=== PATIENT | female | born 1965 | race African-American/Black ===

== ENCOUNTER → 2016-12-14 | Outpatient (CLI) | payer OTHER ==
[2016-01-08 13:30] VITALS: BP 130/78
[~2016-12-14] MED LIST: CARV6.252 PO; LISI1TAB3 PO; OMEP20TA63 PO; RANI150C PO
--- NOTE | 2016-12-14 16:05 | KCIC ---
PA and lateral chest radiograph. History: Left-sided chest pain for one year. Comparison: June 16, 2004. Findings: Cardiomediastinal silhouette is within normal limits for size. Bilateral lung diaz appear clear without evidence of infiltrate, effusion, or pneumothorax. Impression: 1. No acute cardiopulmonary process. Electronically signed by: Amaury Charles MD (12/14/2016 4:01 PM) [place] [id number]
== END | disposition home or self-care (01) ==
LOC: KCIC 15:21
PROVIDERS: ATTEND Family Medicine
DX: R07.89 Other chest pain (principal)
CPT/HCPCS: 71020

== ENCOUNTER → 2017-06-09 | Outpatient (CLI) | payer OTHER | END | disposition home or self-care (01) | LOC: KCIC MAMMO 13:44 | DX: Z12.31 Encounter for screening mammogram for malignant neoplasm of breast (principal) | CPT/HCPCS: 77063; 77067 ==

== ENCOUNTER → 2018-03-06 | Outpatient (CLI) | payer OTHER ==
[2016-01-08 13:30] VITALS: BP 130/78
[~2018-03-06] MED LIST changes: +CARV6.2511 PO; -CARV6.252 PO
--- NOTE | 2018-03-06 15:07 | KCIC ---
Renal ultrasound 03/06/2018 INDICATION: Left flank pain COMPARISON STUDY: None FINDINGS: Ultrasound evaluation of the kidneys was performed. Static images are submitted to PACS. Right kidney is normal in appearance measuring 11.6 cm in length. Left kidney is partially obscured but appears to be grossly normal in size measuring approximately 12 cm in length. No evidence of hydronephrosis or nephrolithiasis is seen involving either kidney. The bladder is partially decompressed but otherwise grossly unremarkable. IMPRESSION: Somewhat for visualization of the left kidney. No gross sonographic renal abnormalities are identified. Electronically signed by: Fernandez Knox MD (03/06/2018 3:04 PM) [id number]
== END | disposition home or self-care (01) ==
LOC: KCIC US 08:43
PROVIDERS: ATTEND Family Medicine
DX: R10.84 Generalized abdominal pain (principal)
CPT/HCPCS: 76770

== ENCOUNTER → 2018-08-08 | Outpatient (CLI) | payer OTHER ==
[2016-01-08 13:30] VITALS: BP 130/78
[~2018-08-08] MED LIST changes: +CONTRAST GIVEN. MC PRN; +GADOBUTROL 7.5 MMOL/7.5 ML VIAL IV ONE; +IOHEXOL 240 MG/ML 50ML VIAL. PO ONE; +IOHEXOL 300 MG/ML 100ML VIAL. IV ONE
--- NOTE | 2018-08-08 15:47 | RAD ---
Examination: CT ABD PELV W/ORAL IV CONTRAST History: LUQ ABD PAIN
IV OMNI [id number] MLS AND PO OMNI 240 50 MLS
Comparison/Correlation: None Findings: Axial images of the abdomen and pelvis were obtained following IV and oral contrast. Sagittal and coronal reformatted images provided. Visualized lung bases are clear. Liver, spleen, pancreas, adrenal glands, and kidneys are normal. No enlarged abdominal or pelvic lymph nodes. Gallbladder fossa is unremarkable. Abdominal aortic diameter is unremarkable. No ascites or pelvic free fluid. Bicornuate uterus is noted. Appendix is normal. No bowel obstruction. No extraluminal gas. Mild L4-5 disc space narrowing is present. Impression: No mass or suspicious process. PQRS Compliance Statement: One or more of the following individualized dose reduction techniques were utilized for this examination: 1. Automated exposure control 2. Adjustment of the mA and/or kV according to patient size 3. Use of iterative reconstruction technique Electronically signed by: Eduardo Barrios MD (08/08/2018 3:44 PM) [facility]
--- NOTE | 2018-08-08 16:43 | RAD ---
MRI of the Brain without and with Contrast 08/08/2018 Clinical History: Small bump on the left side of skull. Technique: Unenhanced T1-weighted sagittal, coronal and axial and FLAIR, T2-weighted, gradient echo and diffusion-weighted axial images of the brain were obtained. After the intravenous administration of 7.5 cc of Gadavist, enhanced T1-weighted axial, sagittal and coronal images of the brain were obtained. Findings: No previous studies are available for comparison. A MRI compatible marker was placed in the left scalp immediately anterior to the patient feels a palpable abnormality. The ventricles and sulci are within normal limits in size and configuration. Patchy and a few small scattered areas of abnormally increased signal intensity are seen within the periventricular and subcortical white matter of both cerebral hemispheres on the FLAIR and T2-weighted images consistent with areas of minimal small vessel ischemic disease. No acute parenchymal abnormality is seen. No abnormal area of contrast enhancement is noted. No extra-axial fluid collection is seen. There is no MRI evidence of acute ischemia/infarction. Mild mucosal thickening in seen scattered throughout the paranasal sinuses. There are small bilateral mastoid effusions. Normal flow voids are seen within the major vascular structures surrounding the brain parenchyma. No definite soft tissue mass is seen in the left parietal scalp in the area where the patient feels a palpable abnormality. Slightly prominent subcutaneous fat is seen in this region. Conceivably this could represent a small lipoma. Clinical correlation is recommended. Impression: 1. No acute parenchymal abnormality is seen. 2.No definite soft tissue mass is seen in the left parietal scalp in the area where the patient feels a palpable abnormality. Slightly prominent subcutaneous fat is seen in this region. Conceivably this could represent a small lipoma. Clinical correlation is recommended. Electronically signed by: Duc Crenshaw MD (08/08/2018 4:40 PM) [id number]
== END | disposition home or self-care (01) ==
LOC: CT 08:00
PROVIDERS: ATTEND Family Medicine
DX: J34.89 Other specified disorders of nose and nasal sinuses (principal); H74.8X3 Other specified disorders of middle ear and mastoid, bilateral; R10.12 Left upper quadrant pain; L98.9 Disorder of the skin and subcutaneous tissue, unspecified
CPT/HCPCS: 70553; 74177; A9585